=== PATIENT | male | born 1950 | race Caucasian/White ===

== ENCOUNTER 2016-08-12 12:09 | Emergency (ER) | payer MEDICARE ==
--- NOTE | ~2016-08-12 | EKG ---
PATIENT: MARYANA LAKHANI UNIT #: [id number] Ventricular Rate: 59 BPM Atrial Rate: 59 BPM P-R Interval: 112 ms QRS Duration: 90 ms Q-T Interval: 452 ms QTC Calculation(Bezet): 447 ms P [place]: 64 degrees Calculated R [place]: 57 degrees Calculated T [place]: 41 degrees Diagnosis Line: Sinus bradycardia with Premature atrial complexes Diagnosis Line: Otherwise normal ECG Diagnosis Line: No previous ECGs available Diagnosis Line: Confirmed by AKIRA ABEBE MD ([id number]) on 08/15/2016 Diagnosis Line: 12:00:09 PM INTERPRETING MD: ANDRAE BLANDON
[2016-08-12 11:38] LABS: URINE SOURCE CLEAN CATCH
[2016-08-12 11:40] LABS: URINE APPEARANCE CLEAR; URINE BILIRUBIN NEG (NEG); URINE BLOOD NEG (NEG); URINE COLOR YELLOW; URINE GLUCOSE NEG (NORM); URINE KETONE NEG (NEG); URINE LEUKOCYTE ESTERASE NEG (NEG); URINE NITRATE NEG (NEG); URINE PROTEIN NEG (NEG); URINE SPECIFIC GRAVITY <=1.005 (1.003-1.035); URINE UROBILINOGEN 0.2 MG/DL (NORM)
[2016-08-12 11:58] LABS: MICRO INDICATED? NO
[~2016-08-12 12:09] MED LIST: AMLODIPINE BESYL5 MG PO; LIPITOR PO; PLAVIX PO
[2016-08-12 12:38] LABS: BASOPHIL# 0.1 X10e3 (0-0.3); BASOPHIL% 0.8 % (0-2.5); EOSINOPHIL% 0.7 % (0.0-7.0); HEMATOCRIT 45.2 % (38.0-50.0); HEMOGLOBIN 15.5 gm/dL (13.0-16.0); LYMPHOCYTE# 1.8 X10e3 (1.0-3.5); LYMPHOCYTE% 24.8 % (17.0-45.0); MEAN CELL VOLUME 90.6 FL (83-96); MEAN CORPUSCULAR HEMOGLOBIN 31.1 PG (28-34); MEAN CORPUSCULAR HGB CONC 34.3 g/dL (30-36); MONOCYTE# 0.5 X10e3 (0-1.0); MONOCYTE% 6.4 % (3.0-12.0); NEUTROPHIL% 67.3 % (40-75); PLATELET COUNT 133 X10e3 (140-420); RED BLOOD COUNT 4.99 X10e (3.90-5.60); RED CELL DISTRIBUTION WIDTH 13.9 % (11.0-15.5); WHITE BLOOD COUNT 7.4 X10e3 (4.0-10.5)
[2016-08-12 12:41] LABS: DIFF IND NO
[2016-08-12 12:49] LABS: POC - CKMB <1.0 ng/mL (0.0-7.9); POC - TROPONIN <0.05 ng/mL (<=0.05)
[2016-08-12 12:59] LABS: CALCIUM SERUM 8.9 mg/dL (8.4-10.2); GLOM FILT RATE Estimated 78.1 mL/min (>60); POTASSIUM 3.8 mmol/L (3.5-5.1)
== END 2016-08-12 13:44 | disposition home or self-care (01) ==
LOC: SED 12:09
PROVIDERS: Emergency Medicine
DX: R42 Dizziness and giddiness (principal); I10 Essential (primary) hypertension; Z86.73 Personal history of transient ischemic attack (TIA), and cerebral infarction without residual deficits; F17.200 Nicotine dependence, unspecified, uncomplicated; Z79.899 Other long term (current) drug therapy
CPT/HCPCS: 36415; 80048; 81003; 82553; 84484; 85025; 93005; 99283